=== PATIENT | male | born 1990 | race Caucasian/White ===

== ENCOUNTER 2017-05-09 15:51 | Emergency (ER) | payer SELFPAY ==
[~2017-05-09] VITALS: Ht 170.2 cm; Wt 58.5 kg
[2017-05-09 15:53] VITALS: BP 137/83; PULSE 70; RESP 20; TEMP 98.1; O2SAT 99
--- NOTE | 2017-05-09 16:02 | PD ---
Physical Exam Date Seen by Provider: May 09, 2017 Time Seen by Provider: 16:01 Narrative 26 yo male here for abdominal pain. N/V. Feels weak. Loss of appetitie. Works outside a lot. No other medical issues. Going on for 3 days. Vitals are stable in triage. Awaiting bed placement. Data Data Last Documented VS Vital Signs Date Time Temp Pulse Resp B/P (MAP) Pulse Ox O2 Delivery O2 Flow Rate FiO2 05/09/17 15:53 98.1 70 20 137/83 (101) 99 Room Air [facility] Medical Record Reviewed: Yes Supervised Visit with JULIET: No Arnol Goodman May 09, 2017 16:02
[2017-05-09 19:27] VITALS: BP 131/81; PULSE 56; RESP 18; O2SAT 99
--- NOTE | 2017-05-09 19:36 | PD ---
HPI Chief Complaint: General Weakness Time Seen by Provider: 19:24 Travel History International Travel<30 days: No Contact w/Intl Traveler<30days: No Traveled to known affect area: No History of Present Illness HPI 26yo M with no significant PMH presents to the ED with c/o nausea, NBNB vomiting and nonbloody diarrhea for 3 days. Currently with no abdominal pain. Denies any fever, chest pain, sob, dysuria, penile pain or discharge, testicular pain. Denies any recent international traveling or sick contact. Pt also feels that he could not keep anything down and has not been eating or drinking so feels generalized weakness. PFSH Past Medical History Asthma: Yes (as a child) Diminished Hearing: No Tetanus Vaccination: < 5 Years Influenza Vaccination: No Past Surgical History Tonsillectomy: Yes Social History Alcohol Use: Yes (socially) Tobacco Use: Yes Substance Use: No Allergies-Medications (Allergen,Severity, Reaction): Coded Allergies: No Known Allergies (Unverified , 05/09/17) Reported Meds & Prescriptions Reported Meds & Active Scripts Active No Active Prescriptions or Reported Medications Review of Systems Except as stated in HPI: all other systems reviewed are Neg Physical Exam Narrative GENERAL: 26yo M not in distress. SKIN: Focused skin assessment warm/dry. HEAD: Atraumatic. Normocephalic. EYES: Pupils equal and round. No scleral icterus. No injection or drainage. ENT: No nasal bleeding or discharge. Mucous membranes pink and moist. NECK: Trachea midline. No JVD. CARDIOVASCULAR: Regular rate and rhythm. No murmur appreciated. RESPIRATORY: No accessory muscle use. Clear to auscultation. Breath sounds equal bilaterally. GASTROINTESTINAL: Abdomen soft, non-tender, nondistended. No rebound tenderness or guarding. MUSCULOSKELETAL: No obvious deformities. No clubbing. No cyanosis. No edema. NEUROLOGICAL: Awake and alert. No obvious cranial nerve deficits. Motor grossly within normal limits. Sensation intact. Normal speech. PSYCHIATRIC: Appropriate mood and affect; insight and judgment normal. Data Data Last Documented VS Vital Signs Date Time Temp Pulse Resp B/P (MAP) Pulse Ox O2 Delivery O2 Flow Rate FiO2 05/09/17 19:27 56 18 131/81 (98) 99 Room Air 05/09/17 15:53 98.1 Orders Orders Complete Blood Count With Diff (05/09/17 19:31) Basic Metabolic Panel (Bmp) (05/09/17 19:31) Lipase (05/09/17 19:31) Ondansetron Inj (Zofran Inj) (05/09/17 19:45) Sodium Chlor 0.9% 1000 Ml Inj (Ns 1000 M (05/09/17 19:45) Labs Laboratory Tests Test 05/09/17 19:30 White Blood Count 11.6 TH/MM3 Red Blood Count 5.15 MIL/MM3 Hemoglobin 15.3 GM/DL Hematocrit 46.2 % Mean Corpuscular Volume 89.7 FL Mean Corpuscular Hemoglobin 29.6 PG Mean Corpuscular Hemoglobin Concent 33.0 % Red Cell Distribution Width 13.3 % Platelet Count 195 TH/MM3 Mean Platelet Volume 8.9 FL Neutrophils (%) (Auto) 59.7 % Lymphocytes (%) (Auto) 27.5 % Monocytes (%) (Auto) 11.2 % Eosinophils (%) (Auto) 1.0 % Basophils (%) (Auto) 0.6 % Neutrophils # (Auto) 6.9 TH/MM3 Lymphocytes # (Auto) 3.2 TH/MM3 Monocytes # (Auto) 1.3 TH/MM3 Eosinophils # (Auto) 0.1 TH/MM3 Basophils # (Auto) 0.1 TH/MM3 CBC Comment DIFF FINAL Differential Comment Blood Urea Nitrogen 13 MG/DL Creatinine 0.82 MG/DL Random Glucose 102 MG/DL Calcium Level 8.4 MG/DL Sodium Level 138 MEQ/L Potassium Level 3.6 MEQ/L Chloride Level 103 MEQ/L Carbon Dioxide Level 27.6 MEQ/L Anion Gap 7 MEQ/L Estimat Glomerular Filtration Rate 112 ML/MIN Lipase 222 U/L [facility] Medical Decision Making Medical Screen Exam Complete: Yes Emergency Medical Condition: Yes Differential Diagnosis Gastroenteritis vs. dehydration vs. electrolyte abnormalities Narrative Course 26yo M with nausea, vomiting and diarrhea. Pt has no abdominal pain on exam. Labs reviewed, no leukocytosis. Lipase normal. BMP unremarkable. Pt given zofran and NS IVF. Pt reevaluated at bedside and states he feels much better. Still no abdominal pain. Pt tolerating PO. Return precautions given. Diagnosis Primary Impression: Gastroenteritis Patient Instructions: General Instructions Departure Forms: Tests/Procedures Additional Instructions: Please follow up with your PMD in 3-7 days. Return to the ED if symptoms worsen. Med/Other Pt SpecificInfo: Prescription(s) given Scripts Ondansetron Odt (Zofran Odt) 4 Mg Tab 4 MG SL Q12HR Y for Nausea/Vomiting for 3 Days, #6 TAB 0 Refills Prov: Pari Valencia DO 05/09/17 Disposition: 01 DISCHARGE HOME Condition: Stable Pari Valencia DO May 09, 2017 19:36
[2017-05-09] MEDS ORDERED: ONDANSETRON HCL 4 MG/2 ML VIAL IV PUSH ONE (19:45)
[2017-05-09] MEDS ORDERED: SODIUM CHLOR 0.9% 1000 ML INJ 1,000 ML IV ONE (19:45)
[2017-05-09 20:18] LABS: AUTOMATED NEUTROPHIL # 6.9 TH/MM3 (1.8-7.7); BASOPHIL # 0.1 TH/MM3 (0-0.2); BASOPHIL % 0.6 % (0.0-2.0); EOSINOPHIL # 0.1 TH/MM3 (0-0.4); HEMATOCRIT 46.2 % (39.0-51.0); HEMO FLAGS DIFF FINAL; LYMPH % 27.5 % (9.0-44.0); LYMPHOCYTE # 3.2 TH/MM3 (1.0-4.8); MEAN CELL VOLUME 89.7 FL (80.0-100.0); MEAN CORPUSCULAR HEMOGLOBIN 29.6 PG (27.0-34.0); MONO % 11.2 % (0.0-8.0); NEUT % 59.7 % (16.0-70.0); PLATELET COUNT 195 TH/MM3 (150-450); RED BLOOD COUNT 5.15 MIL/MM3 (4.50-5.90); RED CELL DISTRIBUTION WIDTH 13.3 % (11.6-17.2); WHITE BLOOD COUNT 11.6 TH/MM3 (4.0-11.0)
[2017-05-09 20:26] LABS: BICARBONATE 27.6 MEQ/L (21.0-32.0); POTASSIUM 3.6 MEQ/L (3.5-5.1)
[2017-05-09] MEDS ORDERED: ZOFR4TAB3 SL (21:36)
== END 2017-05-09 21:58 | disposition home or self-care (01) ==
LOC: NEPD 15:51
DX: K52.9 Noninfective gastroenteritis and colitis, unspecified (principal); Z72.0 Tobacco use
CPT/HCPCS: 80048; 83690; 85025; 96361; 96374; 99284; J2405; J7030